=== PATIENT | male | born 1960 | race Caucasian/White ===

== ENCOUNTER 2017-09-22 15:39 | Observation (INO) ==
[2017-09-22] MEDS ORDERED: Ringers Solution, Lactated 500 ML IVC ONE (16:18)
[2017-09-22] MEDS ORDERED: *HR* OxyCODONE/APAP 10/325 TABLET PO PRN (16:22)
[2017-09-22] MEDS ORDERED: Ondansetron 4 MG/2 ML VIAL IVP PRN (16:23)
[2017-09-22] MEDS ORDERED: *HR* Promethazine 25 MG/ML VIAL IVP PRN (16:24)
[2017-09-22] MEDS ORDERED: Ringers Solution, Lactated 1,000 ML IVC ONE (16:45)
--- NOTE | 2017-09-22 17:08 | General Surg History&Physical ---
Date of Encounter: 09/22/17 Time of Encounter: 15:00 History of Present Illness Chief complaint: Acute right upper quadrant abdominal pain, nausea and vomiting HPI: Mr. Lemos is a 57 year old male directly admitted to [facility] after presenting to my office with a 48 hour history of right upper quadrant abdominal pain, nausea and vomiting. Patient indicates symptoms started abruptly the evening of . The patient initiated with right back/flank pain which then radiated around to the front. The pain became progressively worse and was associated with nausea and repeated episodes of emesis. Sonogram of the gallbladder demonstrated cholelithiasis with mild biliary duct dilatation. The gallbladder was not well visualized due to diffuse shadowing gallstones as well as overlying bowel gas. Sonographic Whiting sign was described as negative. The common bile duct was mildly dilated at 6.5 mm. Patient presented to my office in acute distress. He was examined and a direct admission to [facility] arranged. 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; history of nephrotic syndrome; anemia Surgical history: Tonsils bullectomy and adenoidectomy in 1969; colonoscopy last completed 2013 demonstrating a normal colon; open left inguinal hernia repair with mesh, June 2017 Allergies: Clarithromycin, Biaxin, statins Medications: Coumadin 5 mg by mouth Friday through Friday; 2.5 mg on Friday Atacand 20 mg by mouth daily Omeprazole 20 mg by mouth daily Iron 325 mg by mouth twice a day Tizanidine for restless leg syndrome 4 mg by mouth daily at bedtime Citalopram 40 mg by mouth daily at bedtime Social history: Patient is ; he does not smoke, never has; admits to an occasional alcoholic beverage; he denies any illicit drug use. The patient is employed at [employer] Family history: Father had hypertension, heart disease, kidney disease, prostate cancer. Mother had heart disease Physical examination: Age-appropriate male in distress related to his right upper quadrant abdominal pain, nausea and vomiting. He is 1.78 m tall, 99.88 kg, BMI 31.3. The patient is afebrile at 98.3, pulse 71-91, respirations 16 and nonlabored; blood pressure 152/104 (likely due to pain) Skin is warm, without obvious jaundice Lungs: Clear bilaterally; no obvious abdominal pain and deep inspiration. Minimal right upper quadrant abdominal pain with cough Cardiac: Rate was regular did not detect any murmurs Abdomen: Soft with tenderness in the right upper quadrant. Gallbladder was not palpable. No other organomegaly detected. Active bowel sounds. Left inguinal hernia repair well-healed, intact with no evidence of recurrent or persistent hernia Extremities: No obvious clubbing, cyanosis, or edema Impression: 57-year-old male admitted to [facility] after presenting to my office in acute distress with right upper quadrant abdominal pain, nausea and vomiting. There sonographic evidence of cholelithiasis, possible choledocholithiasis. Patient is experiencing considerable biliary colic. The patient is chronically anticoagulated related to a history of recurrent DVT/PE. The anticoagulation would be reversed prior to surgery. Plan: Admit; NPO, IV fluids, pain control, and antiemetics Stat labs: Including CBC, electrolytes, BUN, creatinine; Alkaline phosphatase, AST, ALT, bilirubin, amylase and lipase; PT/INR. Reversal of the patient's anticoagulation be fresh frozen plasma planned tonight guided by PT/INR. Cholecystectomy in a.m. The patient is a reasonable candidate for laparoscopic cholecystectomy but understands an open cholecystectomy may become necessary. Risks of surgery include hemorrhage, infection, intra-abdominal abscess, bile leak, injury to adjacent ducks, vessels, organs, and bowel. Postcholecystectomy diarrhea is also possible. Intraoperative cholangiogram is planned. If choledocholithiasis is identified in the patient will require ERCP. the patient has expressed understanding. Surgical consent has been obtained. Past Med Surg Social Fam HX - Past Medical History Medical history: DVT, hyperlipidemia, hypertension, pulmonary embolus, renal disease Psychiatric history: anxiety - Past Surgical History Surgical History: other - Social History Smoking Status: Never smoker Smokeless Tobacco Status: No Alcohol use: none Drug use: none Medications and Allergies Acetaminophen [Tylenol] 650 mg PO Q6HR PRN tablet 07/02/17 [Rx] Albuterol Sulfate [Ventolin Hfa] 2 puff IH Q4H PRN 07/02/17 [History] Citalopram Hydrobromide [Citalopram HBr] 40 mg PO DAILY 07/02/17 [History] Irbesartan/Hydrochlorothiazide [Avalide 150-12.5 mg Tablet] 1 tab PO DAILY 07/02 [History] Omeprazole [PriLOSEC] 20 mg PO HS 07/02/17 [History] OxyCODONE/APAP 5/325 [Percocet 5/325 MG] 1 each PO Q6H PRN #10 tablet 07/02/17 [ Rx] Tizanidine HCl 4 mg PO HS 07/02/17 [History] Warfarin [Coumadin] 5 mg PO 1800 07/02/17 [History] Hyoscyamine SL [Levsin SL] 0.125 mg SL Q4HR PRN #30 tab.subl 09/22/17 [Rx] Ondansetron ODT [Zofran ODT] 4 mg SL Q6HR PRN #14 tab.rapdis 09/22/17 [Rx] Oxycodone HCl/Acetaminophen [Percocet 5-325 mg Tablet] 1 each PO QID PRN 5 Days #20 tablet 09/22/17 [Rx] 3 Allergy/AdvReac Type Severity Reaction Status Date / Time [id number]-[id number] Reductase Allergy Hives Verified 09/22/17 06:19 Inhibitor [Statins] clarithromycin [From Biaxin] AdvReac Vomiting Verified 09/22/17 06:19 Review of Systems All systems PM: The remainder of the systems were reviewed and are negative General Surgery Exam Initial Vital Signs Temp Pulse Resp BP Pulse Ox 98.3 F 91 16 152/104 96 09/22/17 16:09 09/22/17 16:09 09/22/17 16:09 09/22/17 16:09 09/22/17 16:09 Results - Labs All other labs normal.
[2017-09-22 17:36] LABS: Eosinophils % 0.4 %; Immature Granulocytes % 0.4 % (0-4)
[2017-09-22 17:37] LABS: Basophils # 0.1 K/mcL (0.0-0.2); Basophils % 0.6 %; Hematocrit 39.6 % (37.5-50.1); Hemoglobin 11.2 g/dL (12.9-16.9); Lymphocytes # 1.1 K/mcL (0.6-4.6); Lymphocytes % 13.2 %; Mean Corpuscular HGB Conc 28.3 g/dL (31.6-35.5); Mean Corpuscular Hemoglobin 20.2 pg (28.0-33.3); Mean Corpuscular Volume 71.5 fL (83.0-100.0); Mean Platelet Volume 10.4 fL (9.4-12.4); Monocytes # 0.5 K/mcL (0.0-1.3); Monocytes % 5.8 %; Platelet Count 379 K/mcL (140-400); Red Blood Count 5.54 M/mcL (4.19-5.50); Red Cell Distribution Width 17.5 % (11.5-14.5); Segmented Neutrophils % 79.6 %
[2017-09-22 17:41] LABS: INR 2.9; Neutrophils # 6.4 K/mcL (1.6-8.9); Prothrombin Time 31.6 Seconds (9.4-12.1)
[2017-09-22 17:49] LABS: BUN/Creatinine Ratio 13 (6-26); Bilirubin,Total 0.4 mg/dL (0.3-1.0); Blood Urea Nitrogen 16 mg/dL (6-20); eGFR For African Americans > 60 (> 60); eGFR For Non-African Americans > 60 (> 60)
[2017-09-22 17:50] LABS: Amylase 40 Units/L (29-103); Lipase 22 Units/L (11-82); Potassium 4.3 mEq/L (3.5-5.1)
[2017-09-22] MEDS: Ondansetron 4 MG/2 ML VIAL IVP PRN (17:50)
[2017-09-22] MEDS: Ringers Solution, Lactated 1,000 ML IVC SCH (17:52)
[2017-09-22 18:03] LABS: Hypochromasia Present (Not Present)
[2017-09-22 18:04] LABS: Anisocytosis 2+ (Not Present); Platelet Estimate Normal (Normal)
[2017-09-22] MEDS: *HR* FentaNYL (PF) 100 MCG/2 ML VIAL IVP PRN ×2 (18:41→21:24)
--- NOTE | 2017-09-22 19:37 | Anesthesia Evaluation PreOp ---
Date of Encounter: 09/22/17 Time of Encounter: 22:22 - Past History Planned Operation: Laparoscopic Cholecystectomy Cardiac History: HTN, Hyperlipidemia, Other (H/O DVT with PE, on coumadin--- last dose 09/20/2017) Pulmonary History: Asthma, Other PHONE SPECIALIST History: Denies Any Significant HX Other Medical History: Renal (CKD), GERD Anesthesia History: No Prior Anesthetic Complications, Past Anesthesia Alcohol Use: none Drug use: none Medications and Allergies Acetaminophen [Tylenol] 650 mg PO Q6HR PRN tablet 07/02/17 [Rx] Albuterol Sulfate [Ventolin Hfa] 2 puff IH Q4H PRN 07/02/17 [History] Citalopram Hydrobromide [Citalopram HBr] 40 mg PO DAILY 07/02/17 [History] Irbesartan/Hydrochlorothiazide [Avalide 150-12.5 mg Tablet] 1 tab PO DAILY 07/02 [History] Omeprazole [PriLOSEC] 20 mg PO HS 07/02/17 [History] OxyCODONE/APAP 5/325 [Percocet 5/325 MG] 1 each PO Q6H PRN #10 tablet 07/02/17 [ Rx] Tizanidine HCl 4 mg PO HS 07/02/17 [History] Warfarin [Coumadin] 5 mg PO 1800 07/02/17 [History] Hyoscyamine SL [Levsin SL] 0.125 mg SL Q4HR PRN #30 tab.subl 09/22/17 [Rx] Ondansetron ODT [Zofran ODT] 4 mg SL Q6HR PRN #14 tab.rapdis 09/22/17 [Rx] Oxycodone HCl/Acetaminophen [Percocet 5-325 mg Tablet] 1 each PO QID PRN 5 Days #20 tablet 09/22/17 [Rx] 3 Allergy/AdvReac Type Severity Reaction Status Date / Time Cpluwoi-Dbf-Wey Reductase Allergy Hives Verified 09/22/17 06:19 Inhibitor [Statins] clarithromycin [From Biaxin] AdvReac Vomiting Verified 09/22/17 06:19 - Meds/Allergy Pre-op Review Medications Reviewed: Yes Allergies Reviewed: Yes Beta Blockers on Current Med List: No Anesthesia Results - Labs 09/22/17 17:12 09/22/17 17:12 - Imaging EKG: report reviewed (09/22/2017 SB with occasional PVC's with frequent supraventricular premature complexes, moderate ST depression) Additional studies: 01/30/2012 Echo Impressions: * LVEF 60-65% * Left Ventricle: Normal size, function and thickness. * LV diastolic function is normal. * Normal right ventricular size and systolic function. * No significant valvular heart disease. * No pulmonary hypertension. Anesthesia Exam Vital Signs/O2 Sat, Most Current Temp Pulse Resp BP Pulse Ox 98.2 F 45 14 148/84 95 09/22/17 19:13 09/22/17 19:13 09/22/17 19:13 09/22/17 19:13 09/22/17 19:13 Height: 5'10"/1.78 m Weight: 218 lbs/98.9 kg NPO (# of Hours): 8 Pain Scale: 3 Pain Scale Used: Numeric (1 - 10) - HEENT Pupil (Motor): EOMI Mallampati: III Teeth: Normal Oral Opening: Greater than 3 - PHONE SPECIALIST LOC: Oriented PHONE SPECIALIST Motor: Normal RUE, Normal LUE, Normal RLE, Normal LLE, Normal Face PHONE SPECIALIST Sensory: Normal: RUE, LUE, RLE, LLE, Face - Cardiac Rhythm: Regular Murmur: None - Pulmonary Breath Sounds: bilateral Clear Respiratory Effort: Symmetrical Anesthesia Assess/Plan ASA Score: 3 Modified [place] Scale for Level of Consciousness: Cooperative, oriented, and tranquil Anesthetic Plan: General Monitoring Plan: Standard Monitors Recovery Plan: PACU
[2017-09-22 20:13] LABS: INR 3.2; Prothrombin Time 34.9 Seconds (9.4-12.1)
[2017-09-22] MEDS: *HR* OxyCODONE Immed Rel 5 MG TABLET PO PRN (20:16)
[2017-09-22] MEDS ORDERED: tiZANidine 4 MG TABLET PO SCH (21:00)
[2017-09-22] MEDS: *HR* Promethazine 25 MG/ML VIAL IVP PRN (21:17)
[2017-09-22] MEDS ORDERED: 0.9 % Sodium Chloride 250 ML ONE (22:36)
[2017-09-23] MEDS: *HR* FentaNYL (PF) 100 MCG/2 ML VIAL IVP PRN ×3 (01:37→22:59)
[2017-09-23] MEDS: *HR* Promethazine 25 MG/ML VIAL IVP PRN (01:38)
[2017-09-23] MEDS ORDERED: 0.9 % Sodium Chloride 250 ML ONE (04:57)
[2017-09-23] MEDS: *HR* OxyCODONE Immed Rel 5 MG TABLET PO PRN (05:00)
[2017-09-23] MEDS: Ondansetron 4 MG/2 ML VIAL IVP PRN ×2 (05:01→10:43)
[2017-09-23 10:42] LABS: INR 1.7
[2017-09-23] MEDS ORDERED: CeFAZolin Syringe 2,000MG/20 ML SYR IVPB ONE (11:50)
[2017-09-23] MEDS ORDERED: CeFAZolin Syr 2,000MG/20 ML 2,000 MG/20 ML SYRINGE IVPB ONE (12:00)
[2017-09-23] MEDS ORDERED: Bupivacaine/EPI 1:200k 0.5%PF 30 ML VIAL ONE (12:06)
[2017-09-23] MEDS: Ringers Solution, Lactated 1,000 ML IVC SCH (12:41)
[2017-09-23] MEDS ORDERED: *HR* Midazolam HCl 2 MG/2 ML VIAL ONE (12:52)
[2017-09-23] MEDS ORDERED: *HR* Rocuronium Bromide 50 MG/5 ML VIAL ONE (12:52)
[2017-09-23] MEDS ORDERED: Lidocaine -MPF 2% 2 ML VIAL ONE ×2 (12:52)
[2017-09-23] MEDS ORDERED: *HR* FentaNYL (PF) 100 MCG/2 ML VIAL ONE ×2 (12:52→12:53)
[2017-09-23] MEDS ORDERED: *HR* Succinylcholine 200 MG/10 ML VIAL IVP ONE (12:52)
[2017-09-23] MEDS ORDERED: *HR* Propofol 200 MG/20 ML VIAL IVP ONE ×2 (12:52→13:43)
[2017-09-23] MEDS ORDERED: *HR* Promethazine 25 MG/ML VIAL IVP PRN (13:03)
[2017-09-23] MEDS ORDERED: MORPHINE SUL Oral CONC 10 MG/0.5 ML ORAL.SYG SL PRN (13:03)
[2017-09-23] MEDS ORDERED: *HR* Labetalol 20 MG/4 ML SYRINGE IVP PRN (13:03)
[2017-09-23] MEDS ORDERED: Ondansetron 4 MG/2 ML VIAL ONE (13:09)
[2017-09-23] MEDS ORDERED: Dexamethasone 4 MG/ML VIAL ONE (13:09)
[2017-09-23] MEDS ORDERED: *HR* Labetalol 100 MG/20 ML MDV ONE (13:20)
[2017-09-23] MEDS ORDERED: Isovue-300 50 ML VIAL IVP ONE (13:21)
[2017-09-23] MEDS ORDERED: Neostigmine Methylsulfate 3 MG/3 ML SYRINGE ONE (13:35)
[2017-09-23] MEDS ORDERED: Ringers Solution, Lactated 500 ML IVC ONE ×2 (14:10→14:30)
--- NOTE | 2017-09-23 14:20 | Operative Note ---
Date of procedure: 09/23/17 Pre-op diagnosis: Acute biliary colic, cholecystitis cholelithiasis Post-op diagnosis: same Procedure: Laparoscopic cholecystectomy, intraoperative cholangiogram Complications: None apparent Anesthesia: GETA Local Anesthetics: 0.5% Sensorcaine HCL with Epinephrine 1:200,000 SubQ (cc) ( 20 mL) Surgeon: Arvind Harrison Was there an driller's assistant present: No Fuel Cell Repairer Other: DAYRON Velasquez Estimated blood loss (cc): 10 IV fluids (cc): 1,000 Specimen: gallbladder Condition: stable Disposition: PACU Procedure in Detail: The patient was brought to the operating room where he was placed on the operating room table. The patient was appropriately identified as to person and procedure. The accuracy of this information was confirmed by the patient and the procedure team. The patient was then intubated and anesthetized under the supervision of [facility]. The abdomen was prepped and draped in usual sterile fashion. Several milliliters of 0.5% bupivacaine with 1-200,000 epinephrine was infiltrated into the infraumbilical skin. A small transverse incision was made. Dissection was carried to the fascia. The fascia was grasped and elevated. Additional bupivacaine with epinephrine was infiltrated before the fascia was incised. An 11 mm Xcel port was established. The rigid laparoscope was placed within the obturator to visualize passage through the layers of the anterior abdominal wall. When the abdominal cavity was accessed, the obturator was replaced by the rigid laparoscope, and the abdomen was insufflated with gaseous carbon dioxide. There was no obvious visible injury from establishing the port. Under direct visualization, 3 additional ports were placed along the right costal margin. Each of these sites was infiltrated with the bupivacaine with epinephrine solution. All bladder was grasped and retracted. There were multiple adhesions, primarily of omentum, that required dissection to facilitate exposure of the gallbladder and the hepatoduodenal ligament. This dissection was completed with the Ethicon harmonic jasmyne. The cystic duct was then identified, skeletonized, and clipped near the infundibulum the gallbladder. The cystic artery was also identified, skeletonized, and clipped. A Taut cholangiogram catheter was introduced. The cystic artery was incised and the cholangiogram catheter inserted. Using C-arm fluoroscopy a cholangiogram was then completed. This demonstrated a normal- appearing common bile duct with free flow of contrast into the duodenum. The proximal hepatobiliary tree was incompletely visualized with no opacification of the left hepatic duct. This appeared to be due to rapid runoff of the contrast into the duodenum. Dr Kirkpatrick, [facility], provide an intraoperative reading. He identified no filling defects but commented on the nonvisualization of the left hepatic duct. A cholangiogram catheter was removed. The cystic duct was divided as was the cystic artery. The gallbladder was dissected from liver bed using Ethicon harmonic jasmyne. When the gallbladder was from the surrounding structures, it was placed in endoscopic pouch and removed via the infraumbilical opening. The gallbladder was recovered and sent to pathology for analysis. Several small stones were evident within the gallbladder. The liver bed was inspected for adequate hemostasis. The laparoscopic instrumentation was removed, the pneumoperitoneum evacuated. The fascia of the infraumbilical opening was closed with interrupted [id number] 0 Vicryl using S retractors. The skin edges of the ports were then approximated with subcuticular 4-0 Vicryl. The incisions were sealed with Dermabond dermal adhesive. The patient was taken to recovery in stable condition. Needle, sponge, and instrument counts were correct at the close of the case.
[2017-09-23] MEDS ORDERED: Glycopyrrolate 0.2 MG/ML VIAL ONE (14:55)
[2017-09-23] MEDS ORDERED: *HR* Atropine Sulfate 1 MG/ML VIAL ONE (14:55)
[2017-09-23] MEDS ORDERED: Acetaminophen 325 MG TABLET PO PRN (15:18)
[2017-09-23] MEDS ORDERED: Ringers Solution, Lactated 1,000 ML IVC SCH (15:18)
[2017-09-23] MEDS ORDERED: *HR* OxyCODONE/APAP 5/325 TABLET PO PRN (15:18)
[2017-09-23] MEDS ORDERED: Ondansetron 4 MG/2 ML VIAL IVP PRN (15:18)
[2017-09-23] MEDS ORDERED: tiZANidine 4 MG TABLET PO SCH (21:00)
[2017-09-24 06:02] LABS: Nucleated Red Blood Cells 0.1 /100 WBC (0); Red Cell Distribution Width 17.2 % (11.5-14.5)
[2017-09-24 06:04] LABS: Basophils % 0.2 %; Eosinophils % 0.1 %; Hematocrit 29.9 % (37.5-50.1); Hemoglobin 8.4 g/dL (12.9-16.9); Immature Granulocytes % 0.5 % (0-4); Lymphocytes # 1.1 K/mcL (0.6-4.6); Mean Corpuscular HGB Conc 28.1 g/dL (31.6-35.5); Mean Corpuscular Volume 71.4 fL (83.0-100.0); Mean Platelet Volume 10.4 fL (9.4-12.4); Monocytes # 1.7 K/mcL (0.0-1.3); Monocytes % 11.1 %; Neutrophils # 12.4 K/mcL (1.6-8.9); Platelet Count 400 K/mcL (140-400); Red Blood Count 4.19 M/mcL (4.19-5.50); Segmented Neutrophils % 81.1 %
[2017-09-24 06:09] LABS: Prothrombin Time 21.5 Seconds (9.4-12.1)
[2017-09-24 06:42] LABS: Anisocytosis 1+ (Not Present); Hypochromasia Present (Not Present); Microcytosis Present (Not Present); Platelet Estimate Normal (Normal)
[2017-09-24 07:16] VITALS: BP 109/71
--- NOTE | 2017-09-24 11:26 | Discharge Summary ---
Outpatient Proc Discharge Plan - Plan Additional Instructions: regular diet activities as tolerated, lifting limited to less than 20# patient may shower, wash incisions with soap and water Tylenol, ibuprofen, Motrin, advil, Aleve, etc as needed for pain Prescription for Percocet 5/325, #8, 1 evry 6 hours as needed for pain not relieved by Tylenol or other over the counter medications follow up office, 09/29/2017; patient to call office in AM to make appointment resume Coumadin FRI:, 09/26/2017 Home Medications: Acetaminophen [Tylenol] 650 mg PO Q6HR PRN tablet 07/02/17 [Rx] Albuterol Sulfate [Ventolin Hfa] 2 puff IH Q4H PRN 07/02/17 [History] Citalopram Hydrobromide [Citalopram HBr] 40 mg PO DAILY 07/02/17 [History] Irbesartan/Hydrochlorothiazide [Avalide 150-12.5 mg Tablet] 1 tab PO DAILY 07/02 [History] Omeprazole [PriLOSEC] 20 mg PO HS 07/02/17 [History] Tizanidine HCl 4 mg PO HS 07/02/17 [History] Warfarin [Coumadin] 5 mg PO 1800 07/02/17 [History]
--- NOTE | 2017-09-24 11:45 | General Surgery Progress Note ---
Date of Encounter: 09/24/17 Time of Encounter: 11:20 Subjective Patient reports: feels better Narrative: General Surgery - POD #1 Patient feeling much better; still has pain but it is markedly diminished. Patient has experienced mild right shoulder pain Nausea and vomiting have resolved. Patient had transient bradycardia down into the 30s in the immediate postoperative state; has remained hemodynamically stable through the night Patient is afebrile, currently 98.5, pulse 55-98; respirations 15-16 and unlabored; blood pressure 109/71. Lungs: Clear Abdomen: Soft, minimal right upper quadrant tenderness. Port sites clean and dry. Some ecchymoses around the port sites related to intraoperative infiltration of local anesthetic. Active bowel sounds. Patient is tolerating diet Labs: White count has increased to 15.3; neutrophils 12.4% in response to surgery; hemoglobin diminished at 8.4 with hematocrit 29.9- appears to be due to perioperative hydration. PT 21.5 with an INR of 2.0 Impression: Acute biliary colic, cholelithiasis - acute symptoms resolved postop. Postoperative day 1 status post laparoscopic cholecystectomy with intraoperative cholangiogram Transient postoperative cardiac - resolved Hypertension - controlled History of DVT/PE - chronic anticoagulation. Coumadin will be resumed on 09/26/17 Acceptable postoperative status. Will discharge home. Postop instructions Regular diet Activity as tolerated; lifting limited less than 20 pounds Patient may shower, wash incisions with soap and water Tylenol, ibuprofen, Motrin, Advil, Aleve as needed for pain Prescription for Percocet 5/325, #12, one every 6 hours as needed for pain not relieved by [id number] medication Outpatient follow-up in the office; 09/29/17; patient to call office in a.m. to make this appointment Resume home meds Resume Coumadin, 09/26/17 Objective Vital Signs - Last 8 Hours Temp Pulse Resp BP Pulse Ox 09/24/17 07:15 98.5 F 98 15 109/71 98 09/24/17 05:21 98.2 F 87 16 121/77 91 Intake and Output 09/23/17 09/24/17 09/24/17 23:59 07:59 15:59 Intake Total 300 / 300 0 / 0 Output Total 0 / 0 350 / 350 Balance 300 / 300 -350 / -350 Intake: Oral 300 / 300 0 / 0 Output: Urine 0 / 0 350 / 350 - Labs 09/24/17 05:37 09/22/17 17:12 - VTE Documentation of Mechanical Device: Intermittent pneumatic compression device Consult Discharge Plan - Plan Additional Instructions: regular diet activities as tolerated, lifting limited to less than 20# patient may shower, wash incisions with soap and water Tylenol, ibuprofen, Motrin, advil, Aleve, etc as needed for pain Prescription for Percocet 5/325, #8, 1 evry 6 hours as needed for pain not relieved by Tylenol or other over the counter medications follow up office, 09/29/2017; patient to call office in AM to make appointment resume Coumadin FRI:, 09/26/2017 Referrals: Arvind Harrison MD [Non-Partnered Physician] - Rashid Moya DO [Primary Care Provider] -
== END 2017-09-24 12:48 | disposition home or self-care (01) | DRG 419 ==
LOC: 3ANU
PROVIDERS: ADMIT Surgery; ATTEND Surgery